=== PATIENT | male | born 1955 | race Caucasian/White ===

== ENCOUNTER 2020-05-06 13:06 | Inpatient (IN) ==
--- NOTE | 2020-05-06 13:53 | Emergency Department Note ---
SOB HPI General Chief Complaint: Shortness of Breath/Dyspnea Stated Complaint: shortness of breath Time Seen by Provider: 05/06/20 13:22 Source: patient and EMS Mode of arrival: EMS Limitations: no limitations History of Present Illness HPI Narrative: Narrative: 64-year-old male from [place] presents to the ER to be evaluated for progressive shortness of breath. He is in town for rehab after having a right knee surgery in [place]. He ended up having a septic joint that needed to be washed out on the right. He does have a history of congestive heart failure as well as COPD. He is on Eliquis for A. fib with RVR. He denies fever, chills, body aches, nausea, vomiting, chest pain or chest pressure. He states he is normally on 2 L/min at rest and 3-minute liters per minute with activity. Patient is morbidly obese. He does not do a significant mount of activity on his own. He is also complaining of bilateral hip pain. MD Complaint: shortness of breath Onset (ago): day(s) Severity: moderate Consistency/Duration: constant Improves with: nothing Worsens with: lying flat and exertion Known history of: COPD and congestive heart failure Associated symptoms: Reports orthopnea and carpopedal spasm; Denies chest pain, pain with inspiration, fever and cough Treatment prior to arrival: oxygen Related Data Home oxygen amount: 3 liters Home Medications Medication Instructions Recorded Confirmed Nitrostat 0.4 mg SUBLINGUAL Q5MIN PRN 05/06/20 05/06/20 acetaminophen 1,000 mg PO TID 05/06/20 05/06/20 apixaban 5 mg PO BID 05/06/20 05/06/20 atorvastatin 40 mg PO QHS 05/06/20 05/06/20 bisacodyl 10 mg [place] PRN PRN 05/06/20 05/06/20 bupropion HCl [Wellbutrin SR] 150 mg PO BID 05/06/20 05/06/20 cephalexin [Keflex] 500 mg PO QID 05/06/20 05/06/20 cholecalciferol (vitamin D3) 2,000 unit PO DAILY 05/06/20 05/06/20 cholecalciferol (vitamin D3) 50,000 unit PO WEEKLY 05/06/20 05/06/20 diltiazem HCl [Cartia XT] 240 mg PO QHS 05/06/20 05/06/20 dulaglutide [Trulicity] 1.5 mg SUBCUT WEEKLY 05/06/20 05/06/20 fentanyl 12 mcg TRANSDERMAL Q72 PRN 05/06/20 05/06/20 furosemide 40 mg PO BID 05/06/20 05/06/20 gabapentin 1,200 mg PO TID 05/06/20 05/06/20 insulin glargine 35 unit SUBCUT QHS 05/06/20 05/06/20 insulin lispro See Rx Instructions .ROUTE .COMPLEX 05/06/20 05/06/20 ipratropium-albuterol [Combivent 1 puff INHALATION Q4 PRN 05/06/20 05/06/20 Respimat] lactulose 45 ml PO DAILY PRN 05/06/20 05/06/20 lidocaine [Blue-Emu Lidocaine 1 patch TOPICAL DAILY PRN 05/06/20 05/06/20 Patch] magnesium hydroxide [Milk of 30 ml PO DAILY PRN 05/06/20 05/06/20 Magnesia] melatonin 5 mg PO QHS PRN 05/06/20 05/06/20 metformin 1,000 mg PO TID 05/06/20 05/06/20 metoprolol tartrate 25 mg PO BID 05/06/20 05/06/20 oxycodone 10 mg PO Q4 PRN 05/06/20 05/06/20 polyethylene glycol 17 ea MISCELLANEOUS DAILY PRN 05/06/20 05/06/20 sennosides [senna] 8.6 mg PO DAILY PRN 05/06/20 05/06/20 Allergies Allergy/AdvReac Type Severity Reaction Status Date / Time omeprazole Allergy Unknown Unknown Verified 05/06/20 14:21 ondansetron [From Zofran] Allergy Unknown Unknown Verified 05/06/20 14:21 promethazine Allergy Unknown Unknown Verified 05/06/20 14:21 vancomycin Allergy Unknown Unknown Verified 05/06/20 14:21 Review of Systems ROS ROS Narrative: Narrative: All systems ED: reviewed and negative except as stated. PFS Narrative Patient History Narrative: Narrative: Medical/Surgical/Family History All Active Problems (Updated 05/06/20 @ 17:05 by Pete Collier PA-C) Acute exacerbation of CHF (congestive heart failure) (Acute) Hip pain (Acute) Knee pain (Acute) Atrial fibrillation with RVR (Acute) COPD (chronic obstructive pulmonary disease) (Acute) Intertrigo of genitocrural region due to Michelle species (Acute) Morbid obesity (Acute) CHF (congestive heart failure) (Acute) Social History Smoking Status: Former smoker Exam Narrative Narrative: Narrative: General Limitations: no limitations General appearance: Present alert and obese Head Head: Present atraumatic and normocephalic Eye Eye: Present normal appearance, PERRL and EOMI Chest Chest: Present normal inspection and symmetric chest wall rise Respiratory Respiratory: Present wheezes and decreased breath sounds Adbominal Abdominal: Present soft; Absent tenderness : Present other (Diffuse intertrigo in creases ) Extremities Extremities: Present normal capillary refill and pedal edema Psychiatric Psychiatric: Present normal affect and normal mood Skin Skin: Present warm (WNL), dry and rash Course Course Course Narrative: Patient with known history of A. fib with RVR, COPD and congestive heart failure presents the ER to be evaluated for progressive shortness of breath he has no chest pain or chest pressure at this time. He has diffuse wheezing on physical exam his oxygen saturation has been sitting around 88 or 89 on 3 L/min. He has 2 L/min at baseline and 3 with activity. He denies fever or systemic symptoms. He denies new cough, chills, body aches or known source of infection. He will evaluated with CBC, CMP, troponin, venous blood gas, lactate, BNP, chest x-ray, EKG at this time. Vital Signs Vital signs: Vital Signs Temperature 97.2 F 05/06/20 13:07 Pulse Rate 65 05/06/20 13:07 Respiratory Rate 20 05/06/20 13:07 Blood Pressure 82/49 05/06/20 13:07 Pulse Oximetry (%) 100 05/06/20 13:07 Temperature 97.2 F 05/06/20 13:07 Pulse Rate 66 05/06/20 16:33 Respiratory Rate 14 05/06/20 16:33 Blood Pressure 144/67 05/06/20 16:33 Pulse Oximetry (%) 95 05/06/20 16:33 [facility] MDM Narrative Medical decision making narrative: Narrative: Patient is morbidly obese with significant comorbidities of COPD, A. fib RVR and congestive heart failure. He has significant lower extremity swelling and likely suffers from obstructive sleep apnea and and obesity hypoventilation syndrome. His chest x-ray shows significant vascular congestion with pulmonary arteries and likely heart failure component. He is short of breath and wheezy. He will be started on BiPAP and be given a breathing treatment at this time. EKG shows atrial fibrillation at a rate of [address] or T wave abnormality to suggest acute ischemia. CBC: Mild anemia otherwise unremarkable Venous blood gas: CO2 retention and bicarb which are probably chronic BNP: Significantly elevated at 3390 Troponin: Undetectable Dr. Salmeron consulted for inpatient admission of the patient for congestive heart failure exacerbation. He agreed to admit the patient and will come down to evaluate him at this time. This patient was seen and evaluated in conjunction with Dr. Fernandez. Lab Data Result diagrams: 05/06/20 14:12 05/06/20 14:19 Labs: Lab Results 05/06/20 05/06/20 05/06/20 Range/Units 14:12 14:12 14:19 WBC 10.3 (4.5-11.0) K/mcL RBC 3.81 L (4.50-5.90) M/mcL Hgb 11.5 L (13.5-16.5) g/dL Hct 39.4 L (41.0-55.0) % MCV 103.4 H (80.0-100.0) fL MCH 30.2 (26.0-34.0) pg MCHC 29.2 L (31.0-36.0) g/dL RDW 17.4 H (11.5-14.5) % Plt Count 245 (140-440) K/mcL MPV 9.1 (7.4-10.4) fL Neut % (Auto) 75.2 (38.0-78.0) % Lymph % (Auto) 12.4 L (15.0-49.0) % [place] % (Auto) 11.3 (1.0-12.0) % Eos % (Auto) 0.7 (0.0-7.0) % Baso % (Auto) 0.4 (0.0-2.0) % Lymph # (Auto) 1.27 L (1.50-4.80) K/mcL [place] # (Auto) 1.16 H (0.10-0.90) K/mcL Eos # (Auto) 0.07 (0.00-0.70) K/mcL Baso # (Auto) 0.04 (0.00-0.20) K/mcL Absolute Neutrophils 7.74 (1.80-8.00) K/mcL Sodium 140 (133-145) mmol/L Potassium 4.8 (3.3-5.1) mmol/L Chloride 101 (96-108) mmol/L Carbon Dioxide 35 H (22-30) mmol/L Anion Gap 4.0 L (8.0-16.0) BUN 35 H (8-23) mg/dL Creatinine 1.0 (0.7-1.2) mg/dL GFR Calculation 78 Glucose 82 (70-105) mg/dL Calcium 9.0 (8.6-10.4) mg/dL Magnesium 2.1 (1.6-2.5) mg/dL Total Bilirubin 0.8 (0.1-1.0) mg/dL AST 48 H (<40) U/L ALT 57 H (<40) U/L Alkaline Phosphatase 350 H (39-117) U/L Troponin T < 0.01 (<0.03) ng/mL NT-Pro-B Natriuret Pep 3390.0 H (<125.0) pg/mL Total Protein 7.7 (5.9-8.4) gm/dL Albumin 3.3 (3.2-5.2) gm/dL Globulin 4.4 H (2.2-3.7) gm/dL Albumin/Globulin Ratio 0.8 L (1.0-2.3) ED POC Tests ED POC Tests: FLASH - Influenza A Negative FLASH - Influenza B Negative FLASH - SARS Antigen Negative Discharge Plan Patient/Caregiver Discharge Instructions Pt seen by [facility]/PA only: No Clinical Impression: Acute exacerbation of CHF (congestive heart failure) Patient Disposition: Xfer As Inpt ([facility]) Prescriptions: No Action furosemide 40 mg Tablet 40 mg PO BID RF: 0 atorvastatin 40 mg Tablet 40 mg PO QHS RF: 0 metformin 500 mg Tablet 1,000 mg PO TID RF: 0 bupropion HCl [Wellbutrin SR] 150 mg Tablet Sustained-Release 12 Hr 150 mg PO BID RF: 0 sennosides [senna] 8.6 mg Tablet 8.6 mg PO DAILY PRN (Reason: Constipation) RF: 0 gabapentin 600 mg Tablet 1,200 mg PO TID RF: 0 insulin glargine 100 unit/mL Solution 35 unit SUBCUT QHS RF: 0 lidocaine [Blue-Emu Lidocaine Patch] 4 % Adhesive Patch,Medicated 1 patch TOPICAL DAILY PRN (Reason: Pain) RF: 0 acetaminophen 500 mg Tablet 1,000 mg PO TID RF: 0 magnesium hydroxide [Milk of Magnesia] 400 mg/5 mL Suspension 30 ml PO DAILY PRN (Reason: Constipation) RF: 0 bisacodyl 10 mg Suppository 10 mg [place] PRN PRN (Reason: Constipation) RF: 0 cephalexin [Keflex] 500 mg Capsule 500 mg PO QID RF: 0 diltiazem HCl [Cartia XT] 120 mg Capsule,Extended Release 24hr 240 mg PO QHS RF: 0 insulin lispro 100 unit/mL Solution See Rx Instructions .ROUTE .COMPLEX RF: 0 oxycodone 5 mg Tablet 10 mg PO Q4 PRN (Reason: Pain) RF: 0 polyethylene glycol Powder 17 ea miscellaneous DAILY PRN (Reason: Constipation) RF: 0 metoprolol tartrate 25 mg Tablet 25 mg PO BID RF: 0 lactulose 10 gram/15 mL Solution 45 ml PO DAILY PRN (Reason: Constipation) RF: 0 fentanyl 12 mcg/hr Patch 72 Hour 12 mcg transdermal Q72 PRN (Reason: Pain) RF: 0 melatonin 5 mg Tablet 5 mg PO QHS PRN (Reason: Insomnia) RF: 0 cholecalciferol (vitamin D3) 1,250 mcg (50,000 unit) Tablet 50,000 unit PO WEEKLY RF: 0 apixaban 5 mg Tablet 5 mg PO BID RF: 0 Combivent Respimat 20-100 mcg/actuation Mist 1 puff INHALATION Q4 PRN (Reason: Shortness Of Breath) RF: 0 Trulicity 1.5 mg/0.5 mL Pen Injector 1.5 mg SUBCUT WEEKLY RF: 0 cholecalciferol (vitamin D3) 50 mcg (2,000 unit) Tablet,Chewable 2,000 unit PO DAILY RF: 0 Nitrostat 0.4 mg 0.4 mg sublingual Q5MIN PRN (Reason: Chest Pain) RF: 0
[2020-05-06] MEDS ORDERED: IPRATROPIUM/ALBUTEROL 3 ML AMPUL.NEB NEB ONE (13:58)
--- NOTE | 2020-05-06 14:00 | XRay Report ---
CLINICAL INFORMATION: dyspnea COMPARISON: 01/28/2015 FINDINGS: Moderate cardiomegaly is increased from prior exam. Mild upper mediastinal widening is noted. Pulmonary vessels are mildly distended - new. Moderate patchy airspace disease seen in both mid and right lower lungs and small right pleural effusion IMPRESSION: Moderate CHF. Suggest: two-view upright chest x-ray, when patient returns to clinical baseline, to reassess the upper mediastinum Interpreted and Authenticated by: Sam Banegas 05/06/20
[2020-05-06] MEDS ORDERED: FUROSEMIDE 40 MG/4 ML VIAL IV ONE (14:18)
[2020-05-06 14:53] LABS: Basophils # (Auto) 0.04 K/mcL (0.00-0.20); Basophils % (Auto) 0.4 % (0.0-2.0); Eosinophils # (Auto) 0.07 K/mcL (0.00-0.70); Eosinophils % (Auto) 0.7 % (0.0-7.0); Hematocrit 39.4 % (41.0-55.0); Hemoglobin 11.5 g/dL (13.5-16.5); Lymphocytes # (Auto) 1.27 K/mcL (1.50-4.80); Lymphocytes % (Auto) 12.4 % (15.0-49.0); Mean Cell Volume 103.4 fL (80.0-100.0); Mean Corpuscular HGB Conc 29.2 g/dL (31.0-36.0); Mean Platelet Volume 9.1 fL (7.4-10.4); Monocytes # (Auto) 1.16 K/mcL (0.10-0.90); Monocytes % (Auto) 11.3 % (1.0-12.0); Neutrophils % (Auto) 75.2 % (38.0-78.0); Platelet Count 245 K/mcL (140-440); RBC 3.81 M/mcL (4.50-5.90); Red Cell Distribution Width 17.4 % (11.5-14.5); WBC 10.3 K/mcL (4.5-11.0)
[2020-05-06 15:29] LABS: ALT/SGPT 57 U/L (<40); AST/SGOT 48 U/L (<40); Albumin 3.3 gm/dL (3.2-5.2); Albumin/Globulin Ratio 0.8 (1.0-2.3); Alkaline Phosphatase 350 U/L (39-117); Bilirubin,Total 0.8 mg/dL (0.1-1.0); Blood Urea Nitrogen 35 mg/dL (8-23); Carbon Dioxide 35 mmol/L (22-30); Chloride 101 mmol/L (96-108); Globulin 4.4 gm/dL (2.2-3.7); Glomerular Filtration Rate 78; Glucose 82 mg/dL (70-105)
--- NOTE | 2020-05-06 17:56 | Internal Med History&Physical ---
HPI History of Present Illness Patient information: Note initiated : 05/06/20 at 5:46 pm Service Date, if different from initiated Date: [] Patient: Sam Starr 64 y/o M admitted on for shortness of breath. Chief Complaint: [] History of present illness: Mr. Starr is a 64 year old M Presents for presentation nursing facility for decreased level of consciousness and hypoxia. He is on 2 to 3 L of nasal cannula but was found to be in the 70s. He also reports that he had some hallucinations. He states that he stopped Lasix about 2 to 3 months ago because he ran out of his prescription. He quit using his CPAP about a year ago because it was uncomfortable. Denies any recent illnesses he has chronic edema in his legs. In the ED he was worked up and found to heart failure and was placed on BiPAP and given Lasix. He has chronic dyspnea but states there is no change. Denies coughing or chest pain. He has been [place] [facility] since getting a right knee surgery for septic joint 6 weeks ago. Review of Systems: Pertinent positives above. Plus a little nausea but no vomiting . denies headache/fever/chills/vomiting/chest or abdominal pain/cough/dyspnea/diarrhea. Otherwise see above. PFSH PFSH All Active Problems (Updated 05/06/20 @ 17:05 by Pete Collier PA-C) Acute exacerbation of CHF (congestive heart failure) (Acute) Hip pain (Acute) Knee pain (Acute) Atrial fibrillation with RVR (Acute) COPD (chronic obstructive pulmonary disease) (Acute) Intertrigo of genitocrural region due to Michelle species (Acute) Morbid obesity (Acute) CHF (congestive heart failure) (Acute) Social History (Updated 05/06/20 @ 17:49 by Roman Hunter DO) smoking status: Former smoker additional history: Past medical history is diabetes COPD A. fib depression chronic pain hyperlipidemia obesity obstructive sleep apnea Past surgical history includes right knee surgery MEDS/ALLERGIES Home Medications and Allergies Home Medications Medication Instructions Recorded Confirmed Type Nitrostat 0.4 mg SUBLINGUAL Q5MIN PRN 05/06/20 05/06/20 History acetaminophen 1,000 mg PO TID 05/06/20 05/06/20 History apixaban 5 mg PO BID 05/06/20 05/06/20 History atorvastatin 40 mg PO QHS 05/06/20 05/06/20 History bisacodyl 10 mg NE PRN PRN 05/06/20 05/06/20 History bupropion HCl [Wellbutrin SR] 150 mg PO BID 05/06/20 05/06/20 History cephalexin [Keflex] 500 mg PO QID 05/06/20 05/06/20 History cholecalciferol (vitamin D3) 2,000 unit PO DAILY 05/06/20 05/06/20 History cholecalciferol (vitamin D3) 50,000 unit PO WEEKLY 05/06/20 05/06/20 History diltiazem HCl [Cartia XT] 240 mg PO QHS 05/06/20 05/06/20 History dulaglutide [Trulicity] 1.5 mg SUBCUT WEEKLY 05/06/20 05/06/20 History fentanyl 12 mcg TRANSDERMAL Q72 PRN 05/06/20 05/06/20 History furosemide 40 mg PO BID 05/06/20 05/06/20 History gabapentin 1,200 mg PO TID 05/06/20 05/06/20 History insulin glargine 35 unit SUBCUT QHS 05/06/20 05/06/20 History insulin lispro See Rx Instructions .ROUTE .COMPLEX 05/06/20 05/06/20 History ipratropium-albuterol [Combivent 1 puff INHALATION Q4 PRN 05/06/20 05/06/20 History Respimat] lactulose 45 ml PO DAILY PRN 05/06/20 05/06/20 History lidocaine [Blue-Emu Lidocaine 1 patch TOPICAL DAILY PRN 05/06/20 05/06/20 History Patch] magnesium hydroxide [Milk of 30 ml PO DAILY PRN 05/06/20 05/06/20 History Magnesia] melatonin 5 mg PO QHS PRN 05/06/20 05/06/20 History metformin 1,000 mg PO TID 05/06/20 05/06/20 History metoprolol tartrate 25 mg PO BID 05/06/20 05/06/20 History oxycodone 10 mg PO Q4 PRN 05/06/20 05/06/20 History polyethylene glycol 17 ea MISCELLANEOUS DAILY PRN 05/06/20 05/06/20 History sennosides [senna] 8.6 mg PO DAILY PRN 05/06/20 05/06/20 History Allergies Allergy/AdvReac Type Severity Reaction Status Date / Time omeprazole Allergy Unknown Unknown Verified 05/06/20 14:21 ondansetron [From Zofran] Allergy Unknown Unknown Verified 05/06/20 14:21 promethazine Allergy Unknown Unknown Verified 05/06/20 14:21 vancomycin Allergy Unknown Unknown Verified 05/06/20 14:21 EXAM Constitutional Vitals: Temp Pulse Resp BP Pulse Ox 97.2 F 81 0 L 186/75 97 05/06/20 13:07 05/06/20 17:31 05/06/20 17:31 05/06/20 17:31 05/06/20 17:31 Exam: General: Alert, Awake, No acute Distress, morbid obese Eyes/N/T: EOMI, PERRL, Head/Neck: neck supple, normocephalic atraumatic, JVD CV: irreg irreg, No murmurs, normal s1/s2 Pulm: Significantly diminished b/l with squeaks and some wheezing Abd: soft, nontender, +BS x4 Ext: no clubbing/cyanosis, b/l LE 3+ edema - to abdomen Neuro: Alert, no focal deficits, moves all extremities, CN 2-12 grossly intact, symmetrical strength b/l upper/lower, sensations intact b/l upper/lower Skin: warm/dry DATA Data Completed and Pending Labs: Labs from last 24 hours 05/06/20 05/06/20 05/06/20 17:20 14:19 14:12 WBC RBC Hgb Hct MCV MCH MCHC RDW Plt Count MPV Neut % (Auto) Lymph % (Auto) [place] % (Auto) Eos % (Auto) Baso % (Auto) Lymph # (Auto) [place] # (Auto) Eos # (Auto) Baso # (Auto) Absolute Neutrophils Sodium 140 Potassium 4.8 Chloride 101 Carbon Dioxide 35 H Anion Gap 4.0 L BUN 35 H Creatinine 1.0 GFR Calculation 78 Glucose 82 Calcium 9.0 Magnesium 2.1 Total Bilirubin 0.8 AST 48 H ALT 57 H Alkaline Phosphatase 350 H Troponin T < 0.01 NT-Pro-B Natriuret Pep 3390.0 H Total Protein 7.7 Albumin 3.3 Globulin 4.4 H Albumin/Globulin Ratio 0.8 L Urine Color Pending Urine Appearance Pending Urine pH Pending Ur Specific [place] Pending Urine Protein Pending Urine Glucose (UA) Pending Urine Ketones Pending Urine Occult Blood Pending Urine Nitrate Pending Urine Bilirubin Pending Urine Urobilinogen Pending Ur Leukocyte Esterase Pending 05/06/20 05/06/20 14:12 14:12 WBC 10.3 RBC 3.81 L Hgb 11.5 L Hct 39.4 L MCV 103.4 H MCH 30.2 MCHC 29.2 L RDW 17.4 H Plt Count 245 MPV 9.1 Neut % (Auto) 75.2 Lymph % (Auto) 12.[address] [place] % (Auto) 11.3 Eos % (Auto) 0.7 Baso % (Auto) 0.4 Lymph # (Auto) 1.[address] [place] # (Auto) 1.16 H Eos # (Auto) 0.07 Baso # (Auto) 0.04 Absolute Neutrophils 7.74 Sodium Pending Potassium Pending Chloride Pending Carbon Dioxide Pending Anion Gap Pending BUN Pending Creatinine Pending GFR Calculation Pending Glucose Pending Calcium Pending Magnesium Pending Total Bilirubin Pending AST Pending ALT Pending Alkaline Phosphatase Pending Troponin T NT-Pro-B Natriuret Pep Pending Total Protein Pending Albumin Pending Globulin Pending Albumin/Globulin Ratio Pending Urine Color Urine Appearance Urine pH Ur Specific [place] Urine Protein Urine Glucose (UA) Urine Ketones Urine Occult Blood Urine Nitrate Urine Bilirubin Urine Urobilinogen Ur Leukocyte Esterase A/P Narrative A/P Narrative: A: *Acute on chronic CHF with pulmonary edema: pt stopped home lasix 2-mos ago - "ran out" -likely at least NYHA stage 3 per daughter history -follows with Dr. crenshaw in [place] -trop neg *Acute hypoxic/hypercapnic respiratory failure: ` -Requiring BiPAP *Encephalopathy: 2/2 above, improving *DM w/neuropathy *AFib: On apixaban diltiazem and beta-aiyana *COPD (2-3 L): *RACHEAL: He stopped wearing CPAP year ago *Morbid obesity: *Depression: *h/o septic knee with washout 6-weeks ago: is on oral abx P: -IV lasix -bipap tonight, f/u ABG -monitor uop -echo pending -cardio records -cont home BB/?Dilt -Clarify home medications -basal and SSI - -ptot, CM -ppx: Apixaban Full code Time Spent With Patient Time: Total time spent is greater than 50% in coordination of care (as documented) at patient's floor/unit and/or counseling patient:
[2020-05-06 17:58] LABS: Appearance,Urine CLEAR (Clear); Bilirubin,Urine Negative (Negative); Color,Urine YELLOW; Culture Indicated,Urine No; Glucose,Urine (UA) Negative (Negative); Ketones,Urine Negative (Negative); Leukocyte Esterase,Urine Negative /ug (Negative); Mucus,Urine FEW /hpf; Nitrate,Urine Negative (Negative); Protein,Urine Negative (Negative); Specific Gravity,Urine 1.009 (1.000-1.035); Urine Blood 0.03 mg/dL (Negative); Urine RBC 20 /hpf (0-3); Urine Squamous Epithelial Cell 0 /hpf (0-4); Urine WBC 0 /hpf (0-4); Urobilinogen,Urine Negative
[2020-05-06] MEDS ORDERED: NITROGLYCERIN 5 MG (0.2 MG/HR) PATCH TOPICAL ONE (18:06)
[2020-05-06] MEDS ORDERED: IPRATROPIUM/ALBUTEROL SULFATE 1 PUFF INHALER INH PRN (20:32)
[2020-05-06] MEDS ORDERED: SENNOSIDES 1 TABLET PO PRN ×2 (20:32→21:00)
[2020-05-06] MEDS ORDERED: MAGNESIUM SULFATE 2 GM/50 ML BAG IV PRN (20:32)
[2020-05-06] MEDS ORDERED: BISACODYL 10 MG SUPP.RECT PR PRN (20:32)
[2020-05-06] MEDS ORDERED: DEXTROSE 31 GM ORAL.SUSP PO PRN (20:32)
[2020-05-06] MEDS ORDERED: ONDANSETRON 4 MG/2 ML VIAL IV PRN (20:32)
[2020-05-06] MEDS ORDERED: ACETAMINOPHEN 325 MG TABLET PO PRN (20:32)
[2020-05-06] MEDS ORDERED: POTASSIUM CHLORIDE 40 MEQ in DEXTROSE 5% IN WATER 500 ML IV PRN (20:32)
[2020-05-06] MEDS ORDERED: fentaNYL 12 MCG PATCH TD PRN (20:32)
[2020-05-06] MEDS ORDERED: LABETALOL 5 MG/ML ML IV PRN (20:32)
[2020-05-06] MEDS ORDERED: POTASSIUM CHLORIDE 20 MEQ TABLET PO PRN ×2 (20:32)
[2020-05-06] MEDS ORDERED: DEXTROSE 50% 50 ML VIAL IV PRN (20:32)
[2020-05-06] MEDS ORDERED: METOPROLOL TARTRATE 5 MG/5 ML VIAL IV PRN (20:32)
[2020-05-06] MEDS ORDERED: LACTULOSE 20 GM/30 ML ORAL.SOL PO PRN (20:45)
[2020-05-06] MEDS ORDERED: LIDOCAINE PATCH TOPICAL PRN (20:46)
[2020-05-06] MEDS ORDERED: NITROGLYCERIN 0.4 MG TAB.SUBL SL PRN (20:48)
[2020-05-06] MEDS ORDERED: POLYETHYLENE GLYCOL 3350 17 GM PACKET PO PRN (20:49)
[2020-05-06] MEDS: buPROPion 150 MG TAB.SR.12H PO SCH (21:07)
[2020-05-06] MEDS: APIXABAN 5 MG TABLET PO SCH (21:07)
[2020-05-06] MEDS: MELATONIN 3 MG TABLET PO SCH (21:07)
[2020-05-06] MEDS: METOPROLOL TARTRATE 25 MG TABLET PO SCH (21:07)
[2020-05-06] MEDS: ATORVASTATIN 40 MG TABLET PO SCH (21:07)
[2020-05-06] MEDS: GABAPENTIN 400 MG CAPSULE PO SCH (21:07)
[2020-05-06] MEDS: CEPHALEXIN 500 MG CAPSULE PO SCH (21:07)
[2020-05-06] MEDS: INSULIN GLARGINE, HUMAN 1 UNIT/0.01 ML SQ SCH (21:08)
[2020-05-06] MEDS: INSULIN LISPRO 1 UNIT/0.01 ML UNIT SQ SCH (21:08)
[2020-05-06] MEDS: FUROSEMIDE 100 MG/10 ML VIAL IV SCH (21:09)
[2020-05-06] MEDS: oxyCODONE HCL 5 MG TABLET PO PRN (21:10)
[2020-05-06] MEDS: 0.9 % SODIUM CHLORIDE 10 ML SYRINGE IV SCH (21:10)
[2020-05-07] MEDS: oxyCODONE HCL 5 MG TABLET PO PRN ×4 (03:48→22:17)
[2020-05-07] MEDS: FUROSEMIDE 100 MG/10 ML VIAL IV SCH ×3 (05:24→15:40)
[2020-05-07] MEDS: 0.9 % SODIUM CHLORIDE 10 ML SYRINGE IV SCH ×3 (05:24→21:01)
[2020-05-07 06:48] LABS: Basophils # (Auto) 0.05 K/mcL (0.00-0.20); Basophils % (Auto) 0.5 % (0.0-2.0); Eosinophils # (Auto) 0.12 K/mcL (0.00-0.70); Eosinophils % (Auto) 1.2 % (0.0-7.0); Hematocrit 38.3 % (41.0-55.0); Hemoglobin 11.6 g/dL (13.5-16.5); Lymphocytes # (Auto) 1.23 K/mcL (1.50-4.80); Lymphocytes % (Auto) 12.3 % (15.0-49.0); Mean Cell Volume 100.3 fL (80.0-100.0); Mean Corpuscular HGB Conc 30.3 g/dL (31.0-36.0); Mean Platelet Volume 8.8 fL (7.4-10.4); Monocytes # (Auto) 0.91 K/mcL (0.10-0.90); Monocytes % (Auto) 9.1 % (1.0-12.0); Neutrophils % (Auto) 76.9 % (38.0-78.0); Platelet Count 252 K/mcL (140-440); RBC 3.82 M/mcL (4.50-5.90); Red Cell Distribution Width 17.3 % (11.5-14.5)
--- NOTE | 2020-05-07 06:48 | XRay Report ---
CLINICAL INFORMATION: chf COMPARISON: 05/06/2020 FINDINGS: Moderate cardiomegaly is unchanged. Mild mediastinal widening also stable. Pulmonary vessels have returned to normal in caliber. Edema in the perihilar regions has decreased. Small bilateral pleural effusions have improved. IMPRESSION: Improving CHF - now mild Interpreted and Authenticated by: Sam Banegas 05/07/20
[2020-05-07 07:26] LABS: ALT/SGPT 47 U/L (<40); AST/SGOT 40 U/L (<40); Albumin 2.9 gm/dL (3.2-5.2); Albumin/Globulin Ratio 0.6 (1.0-2.3); Alkaline Phosphatase 305 U/L (39-117); Bilirubin,Direct 0.3 mg/dL (<0.3); Bilirubin,Total 0.7 mg/dL (0.1-1.0); Blood Urea Nitrogen 29 mg/dL (8-23); Calcium 8.8 mg/dL (8.6-10.4); Carbon Dioxide 37 mmol/L (22-30); Chloride 97 mmol/L (96-108); Globulin 4.5 gm/dL (2.2-3.7); Glomerular Filtration Rate 89; Glucose 65 mg/dL (70-105); Lactate Dehydrogenase 186 U/L (135-225); Triglycerides 69 mg/dL (<150); Uric Acid 9.8 mg/dL (2.5-8.0)
--- NOTE | 2020-05-07 07:59 | Internal Med Progress Note ---
SUBJECTIVE Subjective Patient information: Note initiated : 05/07/20 at 7:54 am Service Date, if different from initiated Date: [] Patient: Sam Starr 64 y/o M admitted on 05/06/20 for shortness of breath. Chief Complaint: [] Interval history: History of present illness: Mr. Starr is a 64 year old M Presents for presentation nursing facility for decreased level of consciousness and hypoxia. He is on 2 to 3 L of nasal cannula but was found to be in the 70s. He also reports that he had some hallucinations. He states that he stopped Lasix about 2 to 3 months ago because he ran out of his prescription. He quit using his CPAP about a year ago because it was uncomfortable. Denies any recent illnesses he has chronic edema in his legs. In the ED he was worked up and found to heart failure and was placed on BiPAP and given Lasix. He has chronic dyspnea but states there is no change. Denies coughing or chest pain. He has been [facility] since getting a right knee surgery for septic joint 6 weeks ago. 05/07 Patient feeling better today. States his shortness of breath is close to baseline. States states at baseline he is short of breath just walking across the room. Denies coughing Good diuresis overnight. Review of Systems: denies headache/fever/chills/nausea/vomiting/chest or abdominal pain/cough/diarrhea. Otherwise see above. Constitutional Vitals: Vital Signs Temp Pulse Resp BP Pulse Ox 97.9 F 74 18 113/79 94 05/07/20 04:02 05/07/20 04:02 05/07/20 04:02 05/07/20 04:02 05/07/20 04:02 Period Temp Pulse Resp BP Sys/Mckee Pulse Ox Last 24 Hr 97.2 F-98.3 F 65-96 0-24 66-186/26-152 71-100 Intake and Output 05/06/20 05/07/20 05/07/20 21:59 05:59 13:59 Intake Total 240 Output Total 2725 1900 Balance -2725 -1660 Weight 188.105 kg Intake & Output: Intake & Output 05/06/20 05/07/20 05/07/20 21:59 05:59 13:59 Intake Total 240 Output Total 2725 1900 Balance -2725 -1660 Weight 188.105 kg Intake: Oral 240 Output: Urine Catheter Amount 7501 1281 Other: Meal Nourishment/Supplement Percent of Meal Consumed 100% Urine Appearance Clear Uretheral (Bello) Clear Clear Urine Color Dark Yellow Blood Tinged Uretheral (Bello) Bright Yellow Bright Yellow Exam: General: Alert, Awake, No acute Distress, morbid obese Eyes/N/T: EOMI, , Head/Neck: neck supple, , JVD CV: irreg irreg, No murmurs, Pulm: Significantly diminished b/l with squeaks and some wheezing Abd: soft, nontender, +BS x4 Ext: no clubbing/cyanosis, b/l LE 3+ edema - some improvement, to abdomen Neuro: Alert, no focal deficits, moves all extremities, Skin: warm/dry OBJ DATA Labs CBC & Chem 7: 05/07/20 05:50 05/07/20 05:50 Labs: Abnormal Lab Results 05/07/20 05/07/20 05/06/20 05:50 05:50 17:20 RBC 3.82 L Hgb 11.6 L Hct 38.3 L MCV 100.3 H MCHC 30.3 L RDW 17.3 H Lymph % (Auto) 12.3 L Lymph # (Auto) 1.23 L [place] # (Auto) 0.91 H Carbon Dioxide 37 H Anion Gap 5.0 L BUN 29 H Glucose 65 L Uric Acid 9.8 H Direct Bilirubin 0.3 H GGT 385 H AST 40 H ALT 47 H Alkaline Phosphatase 305 H NT-Pro-B Natriuret Pep Albumin 2.9 L Globulin 4.5 H Albumin/Globulin Ratio 0.6 L Urine RBC 20 H Urine Mucus Few A 05/06/20 05/06/20 14:19 14:12 RBC 3.81 L Hgb 11.5 L Hct 39.4 L MCV 103.4 H MCHC 29.2 L RDW 17.4 H Lymph % (Auto) 12.4 L Lymph # (Auto) 1.27 L [place] # (Auto) 1.16 H Carbon Dioxide 35 H Anion Gap 4.0 L BUN 35 H Glucose Uric Acid Direct Bilirubin GGT AST 48 H ALT 57 H Alkaline Phosphatase 350 H NT-Pro-B Natriuret Pep 3390.0 H Albumin Globulin 4.4 H Albumin/Globulin Ratio 0.8 L Urine RBC Urine Mucus Meds: Medications Acetaminophen (Acetaminophen 325 Mg Tablet) 650 mg PO Q6HP PRN PRN Reason: PAIN/FEVER > 101 Albuterol/Ipratropium (Ipratropium/Albuterol Sulfate 1 Puff Inhaler) 1 puff INH Q4 PRN PRN Reason: Shortness Of Breath Apixaban (Apixaban 5 Mg Tablet) 5 mg PO BID [facility] Last Admin: 05/06/20 21:07 Dose: 5 mg Documented by: Atorvastatin Calcium (Atorvastatin 40 Mg Tablet) 40 mg PO QHS [facility] Last Admin: 05/06/20 21:07 Dose: 40 mg Documented by: Bisacodyl (Bisacodyl 10 Mg Supp.Rect) 10 mg [place] PRN PRN PRN Reason: Constipation Bupropion HCl (Bupropion 150 Mg Tab.Sr.12h) 150 mg PO BID [facility] Last Admin: 05/06/20 21:07 Dose: 150 mg Documented by: Cephalexin HCl (Cephalexin 500 Mg Capsule) 500 mg PO QID [facility]; Protocol Last Admin: 05/06/20 21:07 Dose: 500 mg Documented by: Dextrose (Dextrose 50% 50 Ml Vial) 0 ml IV UD PRN PRN Reason: Hypoglycemia Diagnostic Test (Pha) (Accu-Chek 1 Each Strip) 1 each FS ACHS [facility] Last Admin: 05/06/20 21:07 Dose: 1 each Documented by: Fentanyl (Fentanyl 12 Mcg Patch) 12 mcg TD Q72 PRN PRN Reason: Pain Furosemide (Furosemide 100 Mg/10 Ml Vial) 40 mg IV Q8 [facility] Last Admin: 05/07/20 05:24 Dose: 40 mg Documented by: Gabapentin (Gabapentin 400 Mg Capsule) 1,200 mg PO TID [facility] Last Admin: 05/06/20 21:07 Dose: 1,200 mg Documented by: Glucose (Dextrose 31 Gm Oral.Susp) 15 gm PO PRN PRN PRN Reason: Hypoglycemia Potassium Chloride 40 meq/ (Dextrose) 520 mls @ 130 mls/hr IV UD PRN PRN Reason: Potassium < 3 Magnesium Sulfate (Magnesium Sulfate) 2 gm in 50 mls @ 50 mls/hr IV UD PRN PRN Reason: Magnesium </= 1.6 Insulin Glargine (Insulin Glargine, Human 1 Unit/0.01 Ml) 35 unit SQ QHS [facility] Last Admin: 05/06/20 21:08 Dose: 35 unit Documented by: Insulin Human Lispro (Insulin Lispro 1 Unit/0.01 Ml Unit) 0 unit SQ ACHS [facility]; Protocol Last Admin: 05/06/20 21:08 Dose: Not Given Documented by: Labetalol HCl (Labetalol 5 Mg/Ml Ml) 0 mg IV Q2HP PRN PRN Reason: Hypertension Lactulose (Lactulose 20 Gm/30 Ml Oral.Kay) 30 gm PO DAILY PRN PRN Reason: Constipation Lidocaine (Lidocaine Patch) 1 patch TOPICAL DAILY PRN PRN Reason: Pain Melatonin (Melatonin 3 Mg Tablet) 3 mg PO QHS [facility] Last Admin: 05/06/20 21:07 Dose: 3 mg Documented by: Metoprolol Tartrate (Metoprolol Tartrate 25 Mg Tablet) 25 mg PO BID [facility] Last Admin: 05/06/20 21:07 Dose: 25 mg Documented by: Metoprolol Tartrate (Metoprolol Tartrate 5 Mg/5 Ml Vial) 5 mg IV Q2HP PRN PRN Reason: Tachyarrhythmias HR>110 Nitroglycerin (Nitroglycerin 0.4 Mg Tab.Subl) 0.4 mg SL Q5MIN PRN PRN Reason: Chest Pain Non-Formulary Medication (Dulaglutide [Trulicity]) 1.5 mg SUB-Q WEEKLY [facility] Ondansetron HCl (Ondansetron 4 Mg/2 Ml Vial) 4 mg IV Q4HP PRN PRN Reason: Nausea And Vomiting Oxycodone HCl (Oxycodone Hcl 5 Mg Tablet) 10 mg PO Q4HP PRN; Protocol PRN Reason: Pain Last Admin: 05/07/20 03:48 Dose: 10 mg Documented by: Polyethylene Glycol (Polyethylene Glycol 3350 17 Gm Packet) 17 gm PO DAILY PRN PRN Reason: Constipation Potassium Chloride (Potassium Chloride 20 Meq Tablet) 40 meq PO UD PRN PRN Reason: Potssium is 3-3.5 Potassium Chloride (Potassium Chloride 20 Meq Tablet) 40 meq PO UD PRN PRN Reason: Potassium < 3 Senna (Sennosides 1 Tablet) 1 tab PO DAILYP PRN PRN Reason: Constipation Sodium Chloride (0.9 % Sodium Chloride 10 Ml Syringe) 10 ml IV Q8 [facility] Last Admin: 05/07/20 05:24 Dose: 10 ml Documented by: A/P Narrative A/P Narrative: A: *Acute on chronic CHF with pulmonary edema: pt stopped home lasix 2-mos ago - "ran out" -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 crenshaw in [place] -trop neg -good diuresis *Acute hypoxic/hypercapnic respiratory failure: ` -Required BiPAP, now on 7L NC *Encephalopathy: 2/2 above, resolved *DM w/neuropathy *AFib: On apixaban diltiazem and beta-aiyana *COPD (2-3L): *RACHEAL: He stopped wearing CPAP year ago *Morbid obesity: *Depression: *Macrocytic anemia: *h/o septic knee with washout 6-weeks ago: is on oral abx P: -IV lasix -bipap wean, f/u ABG -monitor uop -echo pending -cardio records -cont home BB, hold home Dilt until echo -basal and SSI - -ptot, CM -ppx: Apixaban Full code Time Spent With Patient Time: Total time spent is greater than 50% in coordination of care (as documented) at patient's floor/unit and/or counseling patient: QUALITY VTE Deep Vein Thrombosis/Pulmonary Embolism Present on Admission: No
[2020-05-07] MEDS ORDERED: HYDROCHLOROTHIAZIDE 12.5 MG CAPSULE PO ONE (08:00)
[2020-05-07] MEDS: INSULIN LISPRO 1 UNIT/0.01 ML UNIT SQ SCH ×4 (08:12→21:01)
[2020-05-07] MEDS: buPROPion 150 MG TAB.SR.12H PO SCH ×2 (08:59→20:59)
[2020-05-07] MEDS: CEPHALEXIN 500 MG CAPSULE PO SCH ×4 (08:59→20:59)
[2020-05-07] MEDS: APIXABAN 5 MG TABLET PO SCH ×2 (08:59→20:59)
[2020-05-07] MEDS: METOPROLOL TARTRATE 25 MG TABLET PO SCH ×2 (08:59→21:00)
[2020-05-07] MEDS: GABAPENTIN 400 MG CAPSULE PO SCH ×3 (08:59→21:00)
[2020-05-07] MEDS: ALBUMIN HUMAN 12.5 GM/50 ML BAG IV SCH ×2 (13:10→21:00)
[2020-05-07] MEDS: FUROSEMIDE 40 MG/4 ML VIAL IV SCH ×2 (15:25→21:36)
[2020-05-07] MEDS: MELATONIN 3 MG TABLET PO SCH (21:00)
[2020-05-07] MEDS: ATORVASTATIN 40 MG TABLET PO SCH (21:00)
[2020-05-07] MEDS: INSULIN GLARGINE, HUMAN 1 UNIT/0.01 ML SQ SCH (21:01)
[2020-05-08] MEDS: oxyCODONE HCL 5 MG TABLET PO PRN ×3 (04:01→22:31)
[2020-05-08] MEDS: FUROSEMIDE 40 MG/4 ML VIAL IV SCH ×3 (05:50→21:08)
[2020-05-08] MEDS: 0.9 % SODIUM CHLORIDE 10 ML SYRINGE IV SCH ×3 (05:50→21:07)
[2020-05-08] MEDS: INSULIN LISPRO 1 UNIT/0.01 ML UNIT SQ SCH ×4 (07:12→21:09)
[2020-05-08] MEDS ORDERED: HYDROCHLOROTHIAZIDE 12.5 MG CAPSULE PO ONE (08:06)
--- NOTE | 2020-05-08 08:06 | Internal Med Progress Note ---
SUBJECTIVE Subjective Patient information: Note initiated : 05/08/20 at 8:00 am Service Date, if different from initiated Date: [] Patient: Sam Starr 64 y/o M admitted on 05/06/20 for shortness of breath. Chief Complaint: [] Interval history: History of present illness: Mr. Starr is a 64 year old M Presents for presentation nursing facility for decreased level of consciousness and hypoxia. He is on 2 to 3 L of nasal cannula but was found to be in the 70s. He also reports that he had some hallucinations. He states that he stopped Lasix about 2 to 3 months ago because he ran out of his prescription. He quit using his CPAP about a year ago because it was uncomfortable. Denies any recent illnesses he has chronic edema in his legs. In the ED he was worked up and found to heart failure and was placed on BiPAP and given Lasix. He has chronic dyspnea but states there is no change. Denies coughing or chest pain. He has been [facility] since getting a right knee surgery for septic joint 6 weeks ago. 05/07 Patient feeling better today. States his shortness of breath is close to baseline. States states at baseline he is short of breath just walking across the room. Denies coughing Good diuresis overnight. Patient thinks he was 40 pounds overweight from fluid. 05/08 Doing well. Breathing continues to improve. Still diuresing but still quite edematous. No overnight event or new complaints. Titrating down oxygen 7 L earlier this morning now down to 5. Review of Systems: denies headache/fever/chills/nausea/vomiting/chest or abdominal pain/cough/diarrhea. Otherwise see above. Constitutional Vitals: Vital Signs Temp Pulse Resp BP Pulse Ox 98.4 F 82 21 104/56 93 05/08/20 04:01 05/08/20 06:02 05/08/20 06:02 05/08/20 06:02 05/08/20 07:36 Period Temp Pulse Resp BP Sys/Mckee Pulse Ox Last 24 Hr 97.1 F-98.4 F 72-100 13-22 104-157/56-111 86-99 Intake and Output 05/07/20 05/08/20 05/08/20 21:59 05:59 13:59 Intake Total 50 340 50 Output Total 3113 104 1207 Balance -1450 -610 -1350 Weight 185.882 kg Intake & Output: Intake & Output 05/07/20 05/08/20 05/08/20 21:59 05:59 13:59 Intake Total 50 340 50 Output Total 8290 074 9223 Balance -6131 -572 -3853 Weight 185.882 kg Intake: IV 50 50 Oral 340 Output: Urine Catheter Amount 1263 402 3536 Other: Meal Dinner Nourishment/Supplement Percent of Meal Consumed 100% 100% Urine Appearance Clear Clear Uretheral (Bello) Clear Clear Clear Urine Color Bright Yellow Bright Yellow Uretheral (Bello) Bright Yellow Bright Yellow Bright Yellow Exam: General: Alert, Awake, No acute Distress, morbid obese Eyes/N/T: EOMI, , Head/Neck: neck supple, CV: irreg irreg, No murmurs, Pulm: diminished but better aeration today, no wheezing Abd: soft, nontender, +BS x4 Ext: no clubbing/cyanosis, b/l LE 2-3+ edema - gradual improvement, to abdomen Neuro: Alert, no focal deficits, moves all extremities, Skin: warm/dry OBJ DATA Labs CBC & Chem 7: 05/07/20 05:50 05/08/20 06:17 Labs: Abnormal Lab Results 05/07/20 05/07/20 05/06/20 05:50 05:50 17:20 RBC 3.82 L Hgb 11.6 L Hct 38.3 L MCV 100.3 H MCHC 30.3 L RDW 17.3 H Lymph % (Auto) 12.3 L Lymph # (Auto) 1.23 L [place] # (Auto) 0.91 H Carbon Dioxide 37 H Anion Gap 5.0 L BUN 29 H Glucose 65 L Uric Acid 9.8 H Direct Bilirubin 0.3 H GGT 385 H AST 40 H ALT 47 H Alkaline Phosphatase 305 H NT-Pro-B Natriuret Pep Albumin 2.9 L Globulin 4.5 H Albumin/Globulin Ratio 0.6 L Urine RBC 20 H Urine Mucus Few A 05/06/20 05/06/20 14:19 14:12 RBC 3.81 L Hgb 11.5 L Hct 39.4 L MCV 103.4 H MCHC 29.2 L RDW 17.4 H Lymph % (Auto) 12.4 L Lymph # (Auto) 1.27 L [place] # (Auto) 1.16 H Carbon Dioxide 35 H Anion Gap 4.0 L BUN 35 H Glucose Uric Acid Direct Bilirubin GGT AST 48 H ALT 57 H Alkaline Phosphatase 350 H NT-Pro-B Natriuret Pep 3390.0 H Albumin Globulin 4.4 H Albumin/Globulin Ratio 0.8 L Urine RBC Urine Mucus Meds: Medications Acetaminophen (Acetaminophen 325 Mg Tablet) 650 mg PO Q6HP PRN PRN Reason: PAIN/FEVER > 101 Last Admin: 05/07/20 13:09 Dose: 650 mg Documented by: Albuterol/Ipratropium (Ipratropium/Albuterol Sulfate 1 Puff Inhaler) 1 puff INH Q4 PRN PRN Reason: Shortness Of Breath Apixaban (Apixaban 5 Mg Tablet) 5 mg PO BID [facility] Last Admin: 05/07/20 20:59 Dose: 5 mg Documented by: Atorvastatin Calcium (Atorvastatin 40 Mg Tablet) 40 mg PO QHS [facility] Last Admin: 05/07/20 21:00 Dose: 40 mg Documented by: Bisacodyl (Bisacodyl 10 Mg Supp.Rect) 10 mg [place] PRN PRN PRN Reason: Constipation Bupropion HCl (Bupropion 150 Mg Tab.Sr.12h) 150 mg PO BID [facility] Last Admin: 05/07/20 20:59 Dose: 150 mg Documented by: Cephalexin HCl (Cephalexin 500 Mg Capsule) 500 mg PO QID [facility]; Protocol Last Admin: 05/07/20 20:59 Dose: 500 mg Documented by: Dextrose (Dextrose 50% 50 Ml Vial) 0 ml IV UD PRN PRN Reason: Hypoglycemia Diagnostic Test (Pha) (Accu-Chek 1 Each Strip) 1 each FS ACHS [facility] Last Admin: 05/08/20 07:11 Dose: 1 each Documented by: Fentanyl (Fentanyl 12 Mcg Patch) 12 mcg TD Q72 PRN PRN Reason: Pain Furosemide (Furosemide 40 Mg/4 Ml Vial) 40 mg IV Q8 [facility] Last Admin: 05/08/20 05:50 Dose: 40 mg Documented by: Gabapentin (Gabapentin 400 Mg Capsule) 1,200 mg PO TID [facility] Last Admin: 05/07/20 21:00 Dose: 1,200 mg Documented by: Glucose (Dextrose 31 Gm Oral.Susp) 15 gm PO PRN PRN PRN Reason: Hypoglycemia Potassium Chloride 40 meq/ (Dextrose) 520 mls @ 130 mls/hr IV UD PRN PRN Reason: Potassium < 3 Magnesium Sulfate (Magnesium Sulfate) 2 gm in 50 mls @ 50 mls/hr IV UD PRN PRN Reason: Magnesium </= 1.6 Insulin Glargine (Insulin Glargine, Human 1 Unit/0.01 Ml) 35 unit SQ QHS [facility] Last Admin: 05/07/20 21:01 Dose: 35 unit Documented by: Insulin Human Lispro (Insulin Lispro 1 Unit/0.01 Ml Unit) 0 unit SQ ACHS [facility]; Protocol Last Admin: 05/08/20 07:12 Dose: Not Given Documented by: Labetalol HCl (Labetalol 5 Mg/Ml Ml) 0 mg IV Q2HP PRN PRN Reason: Hypertension Lactulose (Lactulose 20 Gm/30 Ml Oral.Kay) 30 gm PO DAILY PRN PRN Reason: Constipation Lidocaine (Lidocaine Patch) 1 patch TOPICAL DAILY PRN PRN Reason: Pain Melatonin (Melatonin 3 Mg Tablet) 3 mg PO QHS [facility] Last Admin: 05/07/20 21:00 Dose: 3 mg Documented by: Metoprolol Tartrate (Metoprolol Tartrate 25 Mg Tablet) 25 mg PO BID [facility] Last Admin: 05/07/20 21:00 Dose: 25 mg Documented by: Metoprolol Tartrate (Metoprolol Tartrate 5 Mg/5 Ml Vial) 5 mg IV Q2HP PRN PRN Reason: Tachyarrhythmias HR>110 Nitroglycerin (Nitroglycerin 0.4 Mg Tab.Subl) 0.4 mg SL Q5MIN PRN PRN Reason: Chest Pain Ondansetron HCl (Ondansetron 4 Mg/2 Ml Vial) 4 mg IV Q4HP PRN PRN Reason: Nausea And Vomiting Oxycodone HCl (Oxycodone Hcl 5 Mg Tablet) 10 mg PO Q4HP PRN; Protocol PRN Reason: Pain Last Admin: 05/08/20 04:01 Dose: 10 mg Documented by: Dulaglutide [ Trulicity] 1.5 Mg/0. 5 Ml Pen Injector 1 dose SUB-Q We@0900 [facility] Polyethylene Glycol (Polyethylene Glycol 3350 17 Gm Packet) 17 gm PO DAILY PRN PRN Reason: Constipation Potassium Chloride (Potassium Chloride 20 Meq Tablet) 40 meq PO UD PRN PRN Reason: Potssium is 3-3.5 Potassium Chloride (Potassium Chloride 20 Meq Tablet) 40 meq PO UD PRN PRN Reason: Potassium < 3 Senna (Sennosides 1 Tablet) 1 tab PO DAILYP PRN PRN Reason: Constipation Sodium Chloride (0.9 % Sodium Chloride 10 Ml Syringe) 10 ml IV Q8 [facility] Last Admin: 05/08/20 05:50 Dose: 10 ml Documented by: A/P Narrative A/P Narrative: A: *Acute on chronic diastolic CHF w/pulmonary edema: pt stopped home lasix 2-mos ago - "ran out" -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 crenshaw in [place] -trop neg -good diuresis -echo with good EF, biatrial enlarge,Pulm HTN, diastolic dysfxn *Mod Pulm HTN: *Acute hypoxic/hypercapnic respiratory failure: ` -Required BiPAP initially, now on 6-7L NC *Encephalopathy: 2/2 above, resolved *DM w/neuropathy *AFib: On apixaban diltiazem and beta-aiyana *COPD (2-3L): *RACHEAL: He stopped wearing CPAP year ago *Morbid obesity: *Depression: *Macrocytic anemia: *h/o septic knee with washout 6-weeks ago: is on oral abx P: -IV lasix q8h and hctz -wean O2 -monitor uop -cont home BB, restart home Dilt -will need new script for diuretics upon d/c -basal and SSI -comp wraps and elevate legs -ptot, CM -ppx: Apixaban Full code Time Spent With Patient Time: Total time spent is greater than 50% in coordination of care (as documented) at patient's floor/unit and/or counseling patient: QUALITY VTE Deep Vein Thrombosis/Pulmonary Embolism Present on Admission: No
[2020-05-08 08:08] LABS: ALT/SGPT 28 U/L (<40); AST/SGOT 30 U/L (<40); Albumin/Globulin Ratio 0.7 (1.0-2.3); Alkaline Phosphatase 282 U/L (39-117); Bilirubin,Direct < 0.2 mg/dL (0-0.3); Bilirubin,Total 0.5 mg/dL (0.1-1.0); Blood Urea Nitrogen 27 mg/dL (8-23); Carbon Dioxide 35 mmol/L (22-30); Chloride 96 mmol/L (96-108); Globulin 4.2 gm/dL (2.2-3.7); Glomerular Filtration Rate 89; Glucose 100 mg/dL (70-105); Lactate Dehydrogenase 256 U/L (135-225); Phosphorous 3.6 mg/dL (2.5-4.5); Triglycerides 53 mg/dL (<150); Uric Acid 9.4 mg/dL (2.5-8.0)
[2020-05-08] MEDS: APIXABAN 5 MG TABLET PO SCH ×2 (08:37→21:08)
[2020-05-08] MEDS: GABAPENTIN 400 MG CAPSULE PO SCH ×3 (08:37→21:08)
[2020-05-08] MEDS: METOPROLOL TARTRATE 25 MG TABLET PO SCH ×2 (08:37→21:08)
[2020-05-08] MEDS: CEPHALEXIN 500 MG CAPSULE PO SCH ×4 (08:37→21:08)
[2020-05-08] MEDS: buPROPion 150 MG TAB.SR.12H PO SCH ×2 (08:37→21:08)
[2020-05-08] MEDS ORDERED: DULAGLUTIDE 1.5 MG/0.5 ML SUB-Q SCH (09:00)
[2020-05-08] MEDS ORDERED: ALBUMIN HUMAN 12.5 GM/50 ML BAG IV ONE (14:00)
[2020-05-08] MEDS: MELATONIN 3 MG TABLET PO SCH (21:08)
[2020-05-08] MEDS: DILTIAZEM 120 MG CAP.XL.24H PO SCH (21:08)
[2020-05-08] MEDS: ATORVASTATIN 40 MG TABLET PO SCH (21:08)
[2020-05-08] MEDS: INSULIN GLARGINE, HUMAN 1 UNIT/0.01 ML SQ SCH (21:09)
[2020-05-09] MEDS: FUROSEMIDE 40 MG/4 ML VIAL IV SCH ×3 (05:39→21:32)
[2020-05-09] MEDS: 0.9 % SODIUM CHLORIDE 10 ML SYRINGE IV SCH ×3 (05:40→21:32)
[2020-05-09] MEDS: oxyCODONE HCL 5 MG TABLET PO PRN ×4 (05:49→20:53)
[2020-05-09 07:20] LABS: Blood Urea Nitrogen 24 mg/dL (8-23); Calcium 9.1 mg/dL (8.6-10.4); Carbon Dioxide 38 mmol/L (22-30); Chloride 96 mmol/L (96-108); Glomerular Filtration Rate 89; Glucose 129 mg/dL (70-105)
--- NOTE | 2020-05-09 07:24 | Internal Med Progress Note ---
SUBJECTIVE Subjective Patient information: Note initiated : 05/09/20 at 7:22 am Service Date, if different from initiated Date: [] Patient: Sam Starr 64 y/o M admitted on 05/06/20 for shortness of breath. Chief Complaint: [] Interval history: History of present illness: Mr. Starr is a 64 year old M Presents for presentation nursing facility for decreased level of consciousness and hypoxia. He is on 2 to 3 L of nasal cannula but was found to be in the 70s. He also reports that he had some hallucinations. He states that he stopped Lasix about 2 to 3 months ago because he ran out of his prescription. He quit using his CPAP about a year ago because it was uncomfortable. Denies any recent illnesses he has chronic edema in his legs. In the ED he was worked up and found to heart failure and was placed on BiPAP and given Lasix. He has chronic dyspnea but states there is no change. Denies coughing or chest pain. He has been [facility] since getting a right knee surgery for septic joint 6 weeks ago. 05/07 Patient feeling better today. States his shortness of breath is close to baseline. States states at baseline he is short of breath just walking across the room. Denies coughing Good diuresis overnight. Patient thinks he was 40 pounds overweight from fluid. 05/08 Doing well. Breathing continues to improve. Still diuresing but still quite edematous. No overnight event or new complaints. Titrating down oxygen 7 L earlier this morning now down to 5. 3/25 Shortness of breath close to baseline. Patient continues to diurese. No cough or other new complaints. Net fluid balance is 12 L. Review of Systems: denies headache/fever/chills/nausea/vomiting/chest or abdominal pain/cough/diarrhea. Otherwise see above. Constitutional Vitals: Vital Signs Temp Pulse Resp BP Pulse Ox 97.7 F 73 19 126/72 93 05/09/20 04:01 05/09/20 06:01 05/09/20 06:01 05/09/20 06:01 05/09/20 06:01 Period Temp Pulse Resp BP Sys/Mckee Pulse Ox Last 24 Hr 97.3 F-98.3 F 67-97 14-23 96-144/57-92 89-99 Intake and Output 0305/09/20 05/09/20 21:59 05:59 13:59 Intake Total 910 480 Output Total 2475 1600 Balance -1565 -1120 Weight 182.996 kg Intake & Output: Intake & Output 05/08/20 05/09/20 05/09/20 21:59 05:59 13:59 Intake Total 910 480 Output Total 2475 1600 Balance -1565 -1120 Weight 182.996 kg Intake: IV 50 Oral 860 480 Output: Urine Catheter Amount 2475 1600 Other: Meal Dinner Nourishment/Supplement Percent of Meal Consumed 100% 100% Nourishment/Supplement name crackers and jello Urine Appearance Clear Clear Uretheral (Bello) Clear Urine Color Bright Yellow Dark Yellow Uretheral (Bello) Bright Yellow Exam: General: Alert, Awake, No acute Distress, morbid obese Eyes/N/T: EOMI, , Head/Neck: neck supple, CV: irreg irreg, No murmurs, Pulm: better aeration today still diminished, no wheezing Abd: soft, nontender, +BS x4 Ext: no clubbing/cyanosis, b/l LE 2-3+ edema - gradually improveming Neuro: Alert, no focal deficits, moves all extremities, Skin: warm/dry OBJ DATA Labs CBC & Chem 7: 05/07/20 05:50 05/09/20 05:16 Labs: Abnormal Lab Results 05/09/20 05/08/20 05/07/20 05:16 06:17 05:50 RBC Hgb Hct MCV MCHC RDW Lymph % (Auto) Lymph # (Auto) [place] # (Auto) Carbon Dioxide 38 H 35 H 37 H Anion Gap 3.0 L 5.0 L BUN 24 H 27 H 29 H Glucose 129 H 65 L Uric Acid 9.4 H 9.8 H Direct Bilirubin 0.3 H GGT 338 H 385 H AST 40 H ALT 47 H Alkaline Phosphatase 282 H 305 H Lactate Dehydrogenase 256 H NT-Pro-B Natriuret Pep Albumin 3.0 L 2.9 L Globulin 4.2 H 4.5 H Albumin/Globulin Ratio 0.7 L 0.6 L Urine RBC Urine Mucus 05/07/20 05/06/20 05/06/20 05:50 17:20 14:19 RBC 3.82 L Hgb 11.6 L Hct 38.3 L MCV 100.3 H MCHC 30.3 L RDW 17.3 H Lymph % (Auto) 12.3 L Lymph # (Auto) 1.23 L [place] # (Auto) 0.91 H Carbon Dioxide 35 H Anion Gap 4.0 L BUN 35 H Glucose Uric Acid Direct Bilirubin GGT AST 48 H ALT 57 H Alkaline Phosphatase 350 H Lactate Dehydrogenase NT-Pro-B Natriuret Pep 3390.0 H Albumin Globulin 4.4 H Albumin/Globulin Ratio 0.8 L Urine RBC 20 H Urine Mucus Few A 05/06/20 14:12 RBC 3.81 L Hgb 11.5 L Hct 39.4 L MCV 103.4 H MCHC 29.2 L RDW 17.4 H Lymph % (Auto) 12.4 L Lymph # (Auto) 1.27 L [place] # (Auto) 1.16 H Carbon Dioxide Anion Gap BUN Glucose Uric Acid Direct Bilirubin GGT AST ALT Alkaline Phosphatase Lactate Dehydrogenase NT-Pro-B Natriuret Pep Albumin Globulin Albumin/Globulin Ratio Urine RBC Urine Mucus Meds: Medications Acetaminophen (Acetaminophen 325 Mg Tablet) 650 mg PO Q6HP PRN PRN Reason: PAIN/FEVER > 101 Last Admin: 05/07/20 13:09 Dose: 650 mg Documented by: Albuterol/Ipratropium (Ipratropium/Albuterol Sulfate 1 Puff Inhaler) 1 puff INH Q4 PRN PRN Reason: Shortness Of Breath Apixaban (Apixaban 5 Mg Tablet) 5 mg PO BID [facility] Last Admin: 05/08/20 21:08 Dose: 5 mg Documented by: Atorvastatin Calcium (Atorvastatin 40 Mg Tablet) 40 mg PO QHS [facility] Last Admin: 05/08/20 21:08 Dose: 40 mg Documented by: Bisacodyl (Bisacodyl 10 Mg Supp.Rect) 10 mg KS PRN PRN PRN Reason: Constipation Bupropion HCl (Bupropion 150 Mg Tab.Sr.12h) 150 mg PO BID [facility] Last Admin: 05/08/20 21:08 Dose: 150 mg Documented by: Cephalexin HCl (Cephalexin 500 Mg Capsule) 500 mg PO QID [facility]; Protocol Last Admin: 05/08/20 21:08 Dose: 500 mg Documented by: Dextrose (Dextrose 50% 50 Ml Vial) 0 ml IV UD PRN PRN Reason: Hypoglycemia Diagnostic Test (Pha) (Accu-Chek 1 Each Strip) 1 each FS [facility] Last Admin: 05/08/20 21:09 Dose: 1 each Documented by: Diltiazem HCl (Diltiazem 120 Mg Cap.Xl.24h) 120 mg PO QHS [facility] Last Admin: 05/08/20 21:08 Dose: 120 mg Documented by: Fentanyl (Fentanyl 12 Mcg Patch) 12 mcg TD Q72 PRN PRN Reason: Pain Furosemide (Furosemide 40 Mg/4 Ml Vial) 40 mg IV Q8 [facility] Last Admin: 05/09/20 05:39 Dose: 40 mg Documented by: Gabapentin (Gabapentin 400 Mg Capsule) 1,200 mg PO TID [facility] Last Admin: 05/08/20 21:08 Dose: 1,200 mg Documented by: Glucose (Dextrose 31 Gm Oral.Susp) 15 gm PO PRN PRN PRN Reason: Hypoglycemia Potassium Chloride 40 meq/ (Dextrose) 520 mls @ 130 mls/hr IV UD PRN PRN Reason: Potassium < 3 Magnesium Sulfate (Magnesium Sulfate) 2 gm in 50 mls @ 50 mls/hr IV UD PRN PRN Reason: Magnesium </= 1.6 Insulin Glargine (Insulin Glargine, Human 1 Unit/0.01 Ml) [facility] Last Admin: 05/08/20 21:09 Dose: 35 unit Documented by: Insulin Human Lispro (Insulin Lispro 1 Unit/0.01 Ml Unit) 0 unit SQ [facility]; Protocol Last Admin: 05/08/20 21:09 Dose: 4 unit Documented by: Labetalol HCl (Labetalol 5 Mg/Ml Ml) 0 mg IV Q2HP PRN PRN Reason: Hypertension Lactulose (Lactulose 20 Gm/30 Ml Oral.Kay) 30 gm PO DAILY PRN PRN Reason: Constipation Lidocaine (Lidocaine Patch) 1 patch TOPICAL DAILY PRN PRN Reason: Pain Melatonin (Melatonin 3 Mg Tablet) 3 mg PO QHS [facility] Last Admin: 05/08/20 21:08 Dose: 3 mg Documented by: Metoprolol Tartrate (Metoprolol Tartrate 25 Mg Tablet) 25 mg PO BID [facility] Last Admin: 05/08/20 21:08 Dose: 25 mg Documented by: Metoprolol Tartrate (Metoprolol Tartrate 5 Mg/5 Ml Vial) 5 mg IV Q2HP PRN PRN Reason: Tachyarrhythmias HR>110 Nitroglycerin (Nitroglycerin 0.4 Mg Tab.Subl) 0.4 mg SL Q5MIN PRN PRN Reason: Chest Pain Ondansetron HCl (Ondansetron 4 Mg/2 Ml Vial) 4 mg IV Q4HP PRN PRN Reason: Nausea And Vomiting Oxycodone HCl (Oxycodone Hcl 5 Mg Tablet) 10 mg PO Q4HP PRN; Protocol PRN Reason: Pain Last Admin: 05/09/20 05:49 Dose: 10 mg Documented by: Dulaglutide [ [facility]] 1.5 Mg/0. 5 Ml Pen Injector 1 dose SUB-Q We@0900 [facility] Last Admin: 05/08/20 08:37 Dose: Not Given Documented by: Polyethylene Glycol (Polyethylene Glycol 3350 17 Gm Packet) 17 gm PO DAILY PRN PRN Reason: Constipation Last Admin: 05/08/20 08:46 Dose: 17 gm Documented by: Potassium Chloride (Potassium Chloride 20 Meq Tablet) 40 meq PO UD PRN PRN Reason: Potssium is 3-3.5 Potassium Chloride (Potassium Chloride 20 Meq Tablet) 40 meq PO UD PRN PRN Reason: Potassium < 3 Senna (Sennosides 1 Tablet) 1 tab PO DAILYP PRN PRN Reason: Constipation Last Admin: 05/08/20 08:46 Dose: 1 tab Documented by: Sodium Chloride (0.9 % Sodium Chloride 10 Ml Syringe) 10 ml IV Q8 [facility] Last Admin: 05/09/20 05:40 Dose: 10 ml Documented by: A/P Narrative A/P Narrative: A: *Acute on chronic diastolic CHF w/pulmonary edema: pt stopped home lasix 2-mos ago - "ran out" -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 crenshaw in [place] -trop neg -good diuresis -echo with good EF, biatrial enlarge,Pulm HTN, diastolic dysfxn *Mod Pulm HTN: *Acute hypoxic/hypercapnic respiratory failure: ` -Required BiPAP initially, now on 3-4L NC *Encephalopathy: 2/2 above, resolved *DM w/neuropathy *AFib: On apixaban diltiazem and beta-aiyana *COPD (2-3L): *RACHEAL: He stopped wearing CPAP year ago *Morbid obesity: *Depression: *Macrocytic anemia: *h/o septic knee with washout 6-weeks ago: is on oral abx P: -IV lasix q8h, hctz -wean O2, provide cpap/bipap at night -monitor uop and electrolytes -cont home BB, restarted home Dilt -will need new script for diuretics upon d/c -basal and SSI -comp wraps and elevate legs -ptot, CM -ppx: Apixaban Full code Time Spent With Patient Time: Total time spent is greater than 50% in coordination of care (as documented) at patient's floor/unit and/or counseling patient: QUALITY VTE Deep Vein Thrombosis/Pulmonary Embolism Present on Admission: No
[2020-05-09] MEDS: INSULIN LISPRO 1 UNIT/0.01 ML UNIT SQ SCH ×4 (07:33→20:36)
[2020-05-09] MEDS: CEPHALEXIN 500 MG CAPSULE PO SCH ×4 (08:42→20:52)
[2020-05-09] MEDS: HYDROCHLOROTHIAZIDE 12.5 MG CAPSULE PO SCH (08:43)
[2020-05-09] MEDS: buPROPion 150 MG TAB.SR.12H PO SCH ×2 (08:43→20:53)
[2020-05-09] MEDS: APIXABAN 5 MG TABLET PO SCH ×2 (08:43→20:53)
[2020-05-09] MEDS: METOPROLOL TARTRATE 25 MG TABLET PO SCH ×2 (08:43→20:52)
[2020-05-09] MEDS: GABAPENTIN 400 MG CAPSULE PO SCH ×3 (08:43→21:08)
--- NOTE | 2020-05-09 10:41 | Discharge Summary ---
Discharge Provider Provider Patient information: Note initiated : 05/09/20 at 10:39 am Service Date, if different from initiated Date: [] Patient: Sam Starr 64 y/o M admitted on 05/06/20 for shortness of breath. Chief Complaint: [] Date of admission: 05/06/20 20:05 Discharge date: 05/10/20 Consults: 05/06/20 Consult to Physician [CONS] Stat Comment: Consulting Provider: Roman Hunter Reason For Exam: Physician to Consult Discharge Meds Discharge Medications Home Medications Combivent Respimat 1 puff INHALATION Q4H 05/06/20 [History Confirmed 05/06/20 Last Taken 05/06/20 08:00] Nitrostat 0.4 mg SUBLINGUAL Q5MIN PRN 05/06/20 [History Confirmed 05/06/20 Last Taken Unknown] Trulicity 1.5 mg SUBCUT WEEKLY 05/06/20 [History Confirmed 05/06/20 Last Taken 05/03/20 08:00] acetaminophen 1,000 mg PO TID 05/06/20 [History Confirmed 05/06/20 Last Taken 05/06/20 08:00] apixaban 5 mg PO BID 05/06/20 [History Confirmed 05/06/20 Last Taken 05/06/20 08:00] atorvastatin 40 mg PO QHS 05/06/20 [History Confirmed 05/06/20 Last Taken 05/05/20 21:00] bisacodyl 10 mg NM PRN PRN 05/06/20 [History Confirmed 05/06/20 Last Taken Unknown] bupropion HCl [Wellbutrin SR] 150 mg PO BID 05/06/20 [History Confirmed 05/06/20 Last Taken 05/06/20 08:00] cephalexin 500 mg PO QID 05/06/20 [History Confirmed 05/06/20 Last Taken 05/06/20 08:00] cholecalciferol (vitamin D3) 2,000 unit PO DAILY 05/06/20 [History Confirmed 05/06/20 Last Taken 05/06/20 08:00] cholecalciferol (vitamin D3) 50,000 unit PO WEEKLY 05/06/20 [History Confirmed 05/06/20 Last Taken 05/04/20 08:00] diltiazem HCl [Cartia XT] 240 mg PO QHS 05/06/20 [History Confirmed 05/06/20 Last Taken 05/05/20 21:00] fentanyl 12 mcg TRANSDERMAL Q72 PRN 05/06/20 [History Confirmed 05/06/20 Last Taken Unknown] gabapentin 1,200 mg PO TID 05/06/20 [History Confirmed 05/06/20 Last Taken 05/06/20 08:00] insulin glargine 35 unit SUBCUT QHS 05/06/20 [History Confirmed 05/06/20 Last Taken 05/05/20 21:00] insulin lispro See Rx Instructions .ROUTE .COMPLEX 05/06/20 [History Confirmed 05/06/20 Last Taken Unknown] lactulose 45 ml PO BID 05/06/20 [History Confirmed 05/06/20 Last Taken 05/06/20 08:00] lidocaine [Blue-Emu Lidocaine Patch] 1 patch TOPICAL DAILY PRN 05/06/20 [History Confirmed 05/06/20 Last Taken Unknown] magnesium hydroxide [Milk of Magnesia] 30 ml PO DAILY PRN 05/06/20 [History Confirmed 05/06/20 Last Taken Unknown] melatonin 5 mg PO QHS 05/06/20 [History Confirmed 05/06/20 Last Taken 05/05/20 21:00] metformin 1,000 mg PO DAILY 05/06/20 [History Confirmed 05/06/20 Last Taken 05/06/20 08:00] metformin 500 mg PO QPM 05/06/20 [History Confirmed 05/06/20 Last Taken 05/05/20 17:00] metoprolol tartrate 25 mg PO BID 05/06/20 [History Confirmed 05/06/20 Last Taken 05/06/20 08:00] oxycodone 10 mg PO Q4 PRN 05/06/20 [History Confirmed 05/06/20 Last Taken 05/06/20 08:00] sennosides [senna] 8.6 mg PO DAILY PRN 05/06/20 [History Confirmed 05/06/20 Last Taken Unknown] polyethylene glycol 3350 [Miralax] 17 g PO QDAY 05/07/20 [History Confirmed 05/07/20 Last Taken 05/06/20 08:00] furosemide 40 mg PO BID #60 tab 05/09/20 [Rx Last Taken Unknown] COURSE Hospital Course Hospital course: History of present illness: Mr. Starr is a 64 year old M Presents for presentation nursing facility for decreased level of consciousness and hypoxia. He is on 2 to 3 L of nasal cannula but was found to be in the 70s. He also reports that he had some hallucinations. He states that he stopped Lasix about 2 to 3 months ago because he ran out of his prescription. He quit using his CPAP about a year ago because it was uncomfortable. Denies any recent illnesses he has chronic edema in his legs. In the ED he was worked up and found to heart failure and was placed on BiPAP and given Lasix. He has chronic dyspnea but states there is no change. Denies coughing or chest pain. He has been [facility] since getting a right knee surgery for septic joint 6 weeks ago. 05/07 Patient feeling better today. States his shortness of breath is close to baseline. States states at baseline he is short of breath just walking across the room. Denies coughing Good diuresis overnight. Patient thinks he was 40 pounds overweight from fluid. 05/08 Doing well. Breathing continues to improve. Still diuresing but still quite edematous. No overnight event or new complaints. Titrating down oxygen 7 L earlier this morning now down to 5. 05/09 Shortness of breath close to baseline. Patient continues to diurese. No cough or other new complaints. Net fluid balance is 12 L. 05/10 Patient continues to feel better. Good urine output. Weaning down oxygen. senior living facility closer to [place] will not take him tomorrow but will take him today. 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 crenshaw in [place] -echo with good EF, biatrial enlarge,Pulm HTN, diastolic dysfxn *Mod Pulm HTN: *Acute hypoxic/hypercapnic respiratory failure: *Encephalopathy: 2/2 above, resolved *DM w/neuropathy *AFib: On apixaban diltiazem and beta-aiyana *COPD (2-3L): *RACHEAL: He stopped wearing CPAP year ago *Morbid obesity: *Depression: *Macrocytic anemia: *h/o septic knee with washout 6-weeks ago: is on oral abx Discharge diagnosis: Acute on chronic diastolic heart failure pulmonary hypertension acute hypox Secondary discharge diagnosis: Acute hypoxic hypercapnic respiratory failure encephalopathy diabetes A. fib COPD obstructive sleep apnea morbid obesity depression macrocytic anemia Time Spent with Patient Time attestation: Total time spent providing and/or coordinating discharge services: Time spent: Greater than 30 minutes EXAM Constitutional Vitals: Temp Pulse Resp BP Pulse Ox 98.7 F 80 16 110/63 92 05/09/20 08:01 05/09/20 08:01 05/09/20 08:01 05/09/20 08:01 05/09/20 08:01 Discharge Data Data Completed and Pending Labs on day of discharge: Labs from last 24 hours 05/09/20 05:16 Sodium 137 Potassium 4.2 Chloride 96 Carbon Dioxide 38 H Anion Gap 3.0 L BUN 24 H Creatinine 0.9 GFR Calculation 89 Glucose 129 H Calcium 9.1 Discharge Plan Patient/Caregiver Discharge Instructions Activity: increase activity as tolerated Diet: Low Sodium (2gm) Activity Restrictions/Additional Instructions: Follow-up with PCP in 3 to 7 days. Follow-up with your fire truck driver in 3 to 10 days Prescriptions: Continued atorvastatin 40 mg Tablet 40 mg PO QHS RF: 0 metformin 500 mg Tablet 1,000 mg PO DAILY RF: 0 bupropion HCl [Wellbutrin SR] 150 mg Tablet Sustained-Release 12 Hr 150 mg PO BID RF: 0 sennosides [senna] 8.6 mg Tablet 8.6 mg PO DAILY PRN (Reason: Constipation) RF: 0 gabapentin 600 mg Tablet 1,200 mg PO TID RF: 0 insulin glargine 100 unit/mL Solution 35 unit SUBCUT QHS RF: 0 lidocaine [Blue-Emu Lidocaine Patch] 4 % Adhesive Patch,Medicated 1 patch TOPICAL DAILY PRN (Reason: Pain) RF: 0 acetaminophen 500 mg Tablet 1,000 mg PO TID RF: 0 magnesium hydroxide [Milk of Magnesia] 400 mg/5 mL Suspension 30 ml PO DAILY PRN (Reason: Constipation) RF: 0 bisacodyl 10 mg Suppository 10 mg NM PRN PRN (Reason: Constipation) RF: 0 cephalexin 500 mg Capsule 500 mg PO QID RF: 0 diltiazem HCl [Cartia XT] 120 mg Capsule,Extended Release 24hr 240 mg PO QHS RF: 0 insulin lispro 100 unit/mL Solution See Rx Instructions .ROUTE .COMPLEX RF: 0 oxycodone 5 mg Tablet 10 mg PO Q4 PRN (Reason: Pain) RF: 0 metoprolol tartrate 25 mg Tablet 25 mg PO BID RF: 0 lactulose 10 gram/15 mL Solution 45 ml PO BID RF: 0 fentanyl 12 mcg/hr Patch 72 Hour 12 mcg transdermal Q72 PRN (Reason: Pain) RF: 0 melatonin 5 mg Tablet 5 mg PO QHS RF: 0 cholecalciferol (vitamin D3) 1,250 mcg (50,000 unit) Tablet 50,000 unit PO WEEKLY RF: 0 apixaban 5 mg Tablet 5 mg PO BID RF: 0 Trulicity 1.5 mg/0.5 mL Pen Injector 1.5 mg SUBCUT WEEKLY RF: 0 cholecalciferol (vitamin D3) 50 mcg (2,000 unit) Tablet,Chewable 2,000 unit PO DAILY RF: 0 Nitrostat 0.4 mg 0.4 mg sublingual Q5MIN PRN (Reason: Chest Pain) RF: 0 Combivent Respimat 20-100 mcg/actuation Mist 1 puff INHALATION Q4H RF: 0 metformin 500 mg Tablet Extended Release 24 Hr 500 mg PO QPM RF: 0 polyethylene glycol 3350 [Miralax] 17 gram Powder In Packet 17 g PO QDAY RF: 0 furosemide 40 mg Tablet 40 mg PO BID Qty: 60 RF: 0 Follow Up Plan Patient Disposition: Xfer SNF Prognosis: Fair Rehab Potential: Fair I certify that the patient requires SNF services: Yes Overall status at discharge: patient is progressing back to baseline Discharge Orders: Discharge Order (Routine); Ordered 05/10/20 Ordered By: Roman Hunter [facility] VTE Deep Vein Thrombosis/Pulmonary Embolism Present on Admission: No
[2020-05-09] MEDS ORDERED: ALBUMIN HUMAN 12.5 GM/50 ML BAG IV ONE (13:37)
[2020-05-09] MEDS: DILTIAZEM 120 MG CAP.XL.24H PO SCH (20:52)
[2020-05-09] MEDS: MELATONIN 3 MG TABLET PO SCH (20:52)
[2020-05-09] MEDS: ATORVASTATIN 40 MG TABLET PO SCH (20:53)
[2020-05-09] MEDS: INSULIN GLARGINE, HUMAN 1 UNIT/0.01 ML SQ SCH (21:02)
[2020-05-10] MEDS: oxyCODONE HCL 5 MG TABLET PO PRN ×2 (04:27→10:10)
[2020-05-10] MEDS: 0.9 % SODIUM CHLORIDE 10 ML SYRINGE IV SCH (05:27)
[2020-05-10] MEDS: FUROSEMIDE 40 MG/4 ML VIAL IV SCH (05:27)
[2020-05-10] MEDS: INSULIN LISPRO 1 UNIT/0.01 ML UNIT SQ SCH ×2 (06:57→11:24)
[2020-05-10] MEDS: METOPROLOL TARTRATE 25 MG TABLET PO SCH (08:26)
[2020-05-10] MEDS: GABAPENTIN 400 MG CAPSULE PO SCH (08:26)
[2020-05-10] MEDS: APIXABAN 5 MG TABLET PO SCH (08:26)
[2020-05-10] MEDS: buPROPion 150 MG TAB.SR.12H PO SCH (08:26)
[2020-05-10] MEDS: CEPHALEXIN 500 MG CAPSULE PO SCH ×2 (08:26→12:01)
[2020-05-10] MEDS ORDERED: POLYETHYLENE GLYCOL 3350 17 GM PACKET PO SCH (09:00)
[2020-05-10] MEDS: HYDROCHLOROTHIAZIDE 12.5 MG CAPSULE PO SCH (09:35)
[2020-05-10 19:31] LABS: Methylmalonic Acid 447 nmol/L (87-318)
== END 2020-05-10 12:40 | DRG 291 ==
LOC: ED 13:06 → ICU 20:05
PROVIDERS: ADMIT Internal Medicine; ATTEND Internal Medicine